=== PATIENT | female | born 1975 | race Caucasian/White ===

== ENCOUNTER 2017-01-31 03:48 | Emergency (ER) | payer OTHER ==
--- NOTE | 2017-01-31 19:12 | ER ---
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 Did take one of her Ativan 0.25 mg prior to arrival with slight improvement. The patient is unaware of any particular stressor except work. Exam remarkable for nontoxic, afebrile, acutely anxious female with mild tachycardia. Did take another one of her Ativan 0.25 mg sublingual this time with marked improvement. Advised day off work. Follow up Dr. Montalvo as needed. Jose Elise MD/ alisonl JOB #: [id number] CC: Jose Elise MD, Attending Physician Mario Jordan MD, Family Physician Mario Jordan MD CORRECTED: 01/31/2017 1046 [place]
== END 2017-01-31 04:27 | disposition home or self-care (01) ==
LOC: ER 03:48
DX: F41.0 Panic disorder [episodic paroxysmal anxiety] (principal); R00.0 Tachycardia, unspecified; F17.210 Nicotine dependence, cigarettes, uncomplicated; Z88.8 Allergy status to other drugs, medicaments and biological substances; Z79.899 Other long term (current) drug therapy